=== PATIENT | male | born 1965 | race Hispanic/Latino ===

== ENCOUNTER 2018-05-14 00:01 | Emergency (ER) | payer OTHER ==
[2018-05-14 00:04] VITALS: BP 132/89; PULSE 72; RESP 18; O2SAT 96
--- NOTE | 2018-05-14 00:56 | ED PDOC ---
HPI: Psych/Substance Abuse Time Seen by Provider: 05/14/18 00:16 Chief Complaint (Nursing): Alcohol Ingestion Chief Complaint (Provider): Alcohol Ingestion History Per: Patient, EMS History/Exam Limitations: no limitations Onset/Duration Of Symptoms: Other (prior to arrival) Current Symptoms Are (Timing): Still Present Additional Complaint(s): 52 y/o male with a PMHx of alcohol abuse brought to ER by EMS due to alcohol intoxication. Patient states he hold had a few beers. He denies any drugs, injuries, or medical complaints at this time. PCP: [facility] Provider Past Medical History Reviewed: Historical Data, Nursing Documentation, Vital Signs Vital Signs: Last Vital Signs Temp Pulse 72 05/14/18 00:03 Resp 18 05/14/18 00:03 BP 132/89 05/14/18 00:03 Pulse Ox 96 05/14/18 00:03 - Medical History PMH: No Chronic Diseases - Surgical History Surgical History: No Surg Hx - Family History Family History: States: Unknown Family Hx - Allergies Allergies/Adverse Reactions: Allergies Allergy/AdvReac Type Severity Reaction Status Date / Time No Known Allergies Allergy Verified 05/14/18 00:02 Review of Systems ROS Statement: Except As Marked, All Systems Reviewed And Found Negative Physical Exam - Reviewed Nursing Documentation Reviewed: Yes Vital Signs Reviewed: Yes - Physical Exam Appears: Positive for: Non-toxic, No Acute Distress Head Exam: Positive for: ATRAUMATIC, NORMAL INSPECTION, NORMOCEPHALIC Skin: Positive for: Normal Color, Warm, Dry. Negative for: Rash Eye Exam: Positive for: EOMI, Normal appearance, PERRL Neck: Positive for: Normal, Painless ROM, Supple Cardiovascular/Chest: Positive for: Regular Rate, Rhythm. Negative for: Murmur Respiratory: Positive for: Normal Breath Sounds. Negative for: Respiratory Distress Gastrointestinal/Abdominal: Positive for: Normal Exam, Soft. Negative for: Tenderness Back: Positive for: Normal Inspection. Negative for: L CVA Tenderness, R CVA Tenderness, Vertebral Tenderness Extremity: Positive for: Normal ROM. Negative for: Pedal Edema, Deformity Neurologic/Psych: Positive for: Alert, Oriented (x3), Gait (steady). Negative for: Motor/Sensory Deficits - ECG O2 Sat by Pulse Oximetry: 96 (RA) Pulse Ox Interpretation: Normal Medical Decision Making Medical Decision Makin52 y/o male with a history of alcoholism presenting with alcohol abuse -Patient is awake, alert, and oriented in ER -Patient does not need acute ER intervention at this time, safe for discharge home ----- Scribe Attestation: Documented by Keegan Bryan, acting as a scribe for Harsha Pereira MD. Provider Scribe Attestation: All medical record entries made by the Scribe were at my direction and personally dictated by me. I have reviewed the chart and agree that the record accurately reflects my personal performance of the history, physical exam, medical decision making, and the department course for this patient. I have also personally directed, reviewed, and agree with the discharge instructions and disposition. Disposition - Clinical Impression Clinical Impression: Alcohol abuse - Patient ED Disposition Is Patient to be Admitted: No Counseled Patient/Family Regarding: Diagnosis - Disposition Referrals: Alcoholics Anonymous [Outside] Disposition: Routine/Home Disposition Time: 00:43 Condition: STABLE Instructions: Alcohol Abuse and Alcoholism (DC) Forms: [employer] ([place])
[2018-05-14 01:04] VITALS: TEMP 97
== END 2018-05-14 00:55 | disposition home or self-care (01) ==
LOC: H.ER 00:01
DX: F10.10 Alcohol abuse, uncomplicated (principal)

== ENCOUNTER 2019-03-04 23:35 | Emergency (ER) | payer OTHER ==
[2019-03-04 23:35] VITALS: BMI 21.9
--- NOTE | 2019-03-05 00:32 | ED PDOC ---
HPI: Psych/Substance Abuse Time Seen by Provider: 03/04/19 23:46 Chief Complaint (Nursing): Alcohol Ingestion Chief Complaint (Provider): Alcohol Ingestion History Per: Patient, EMS History/Exam Limitations: no limitations Associated Symptoms: Agitation Additional Complaint(s): 53 years old male, well known to provider for multiple visits to ER, brought in by EMS for public intoxication. Patient is very agitated and aggressive. Unable to obtain history from patient dues to intoxication. PMD: None provided Past Medical History Reviewed: Historical Data, Nursing Documentation, Vital Signs Vital Signs: Last Vital Signs Temp 97.7 F 03/04/19 23:44 Pulse 79 03/04/19 23:44 Resp 20 03/04/19 23:44 BP 163/99 H 03/04/19 23:44 Pulse Ox 97 03/04/19 23:44 Primary Care Provider: FAMILY PROVIDER,NO - Medical History Other PMH: Unknown - Family History Family History: States: Unknown Family Hx - Social History Alcohol: Social - Home Medications Home Medications: Ambulatory Orders Medication Instructions Recorded Cephalexin [cephalexin] 500 mg PO QID #40 cap 01/01/19 - Allergies Allergies/Adverse Reactions: Allergies Allergy/AdvReac Type Severity Reaction Status Date / Time No Known Allergies Allergy Verified 03/04/19 23:46 Review of Systems Review Of Systems: ROS cannot be obtained secondary to pt's inabilty to answer questions. Physical Exam - Reviewed Nursing Documentation Reviewed: Yes Vital Signs Reviewed: Yes - Physical Exam Appears: Positive for: No Acute Distress (Agitated and aggressive) Head Exam: Positive for: ATRAUMATIC Skin: Positive for: Normal Color, Warm, Dry Eye Exam: Positive for: Normal appearance, EOMI, PERRL ENT: Positive for: Normal ENT Inspection Neck: Positive for: Normal, Painless ROM, Supple Cardiovascular/Chest: Positive for: Regular Rate, Rhythm. Negative for: Murmur Respiratory: Positive for: Normal Breath Sounds. Negative for: Respiratory Distress Gastrointestinal/Abdominal: Positive for: Normal Exam, Soft. Negative for: Tenderness Back: Positive for: Normal Inspection. Negative for: L CVA Tenderness, R CVA Tenderness Extremity: Positive for: Normal ROM. Negative for: Pedal Edema, Deformity Neurological/Psych: Positive for: Other (Slurred speech) - ECG O2 Sat by Pulse Oximetry: 97 (RA) Pulse Ox Interpretation: Normal Medical Decision Making Medical Decision Making: Time: 2356 Initial impression: 53 years old intoxicated male Initial Plan: --Alcohol Serum --Ativan --Haldol --1:1 Observation Time: 534 --CT Head W/O Contrast 603 CT Head W/O Contrast Findings Normal size of the ventricles and extra-axial spaces for the patient's age. Normal white matter tracts of the supratentorial brain. Normal basal ganglia a nd thalami. Normal brainstem. Normal cerebellum. There is no demonstrated extra-axial, intraparenchymal, or intraventricular hemorrhage. There are no findings of an acute ischemic infarction. Normal calvarium. There is no demonstrated fracture. Normal soft tissue structures. Normal visualized paranasal sinuses. IMPRESSION: Normal unenhanced CT scan of the brain. [address] Patient signed out to Dr. Champion, pending sobriety. Scribe Attestation: Documented by Delia Oh, acting as a scribe for Sathya Myers MD. Provider Scribe Attestation: All medical record entries made by the Scribe were at my direction and personally dictated by me. I have reviewed the chart and agree that the record accurately reflects my personal performance of the history, physical exam, medical decision making, and the department course for this patient. I have also personally directed, reviewed, and agree with the discharge instructions and disposition. Disposition - Clinical Impression Clinical Impression: Alcohol abuse with intoxication - Patient ED Disposition Is Patient to be Admitted: Transfer of Care - Disposition Disposition: Transfer of Care Disposition Time: 07:00 Condition: STABLE Instructions: Alcohol Use - When Is Drinking a Problem? Forms: Head Held High ([place]ian) Patient Signed Over To: Óscar Champion (Pending sobriety)
[2019-03-05 01:11] VITALS: TEMP 98.5
[2019-03-05 04:16] VITALS: BP 131/68
[2019-03-05] MEDS ORDERED: Tdap Vaccine 0.5 ml Vial (10-64 yrs) IM ONE ×2 (05:36→06:59)
--- NOTE | 2019-03-05 07:04 | ED PDOC ---
- ECG O2 Sat by Pulse Oximetry: 97 (RA) Pulse Ox Interpretation: Normal - Progress Re-evaluation Time: 14:01 Condition: Re-examined, Improved Medical Decision Making Medical Decision Making: Time: 0700 -- Patient endorsed to me by Dr. Myers, pending sobriety and CT head. CT SCAN OF THE BRAIN WITHOUT IV CONTRAST CLINICAL INDICATION: Head injury. TECHNIQUE: Axial and reformatted sagittal and coronal images of the brain obtained without IV contrast administration. Normal size of the ventricles and extra-axial spaces for the patient's age. Normal white matter tracts of the supratentorial brain. Normal basal ganglia and thalami. Normal brainstem. Normal cerebellum. There is no demonstrated extra-axial, intraparenchymal, or intraventricular hemorrhage. There are no findings of an acute ischemic infarction. Normal calvarium. There is no demonstrated fracture. Normal soft tissue structures. Normal visualized paranasal sinuses. IMPRESSION: Normal unenhanced CT scan of the brain. Electronically signed on March 05, 2019 6:04:24 AM EDT by: Leti Yepez M.D., Certified by [facility], MS[facility], Neuroradiology 1400 Patient is alert and awake. Ambulatory with steady gait. Scribe Attestation: Documented by Sofiya Guerra, acting as a scribe Maria Eugenia Champion MD. Provider Scribe Attestation: All medical record entries made by the Scribe were at my direction and personally dictated by me. I have reviewed the chart and agree that the record accurately reflects my personal performance of the history, physical exam, medical decision making, and the department course for this patient. I have also personally directed, reviewed, and agree with the discharge instructions and disposition. Disposition Doctor Will See Patient In The: Office Counseled Patient/Family Regarding: Studies Performed, Diagnosis, Need For Followup - Clinical Impression Clinical Impression: Alcohol abuse with intoxication, Head injury - POA Present On Arrival: None - Disposition Referrals: [facility] [Outside] Disposition: Routine/Home Disposition Time: 14:03 Condition: IMPROVED Instructions: Alcohol Use - When Is Drinking a Problem?, Minor Head Injury (DC)
--- NOTE | 2019-03-05 09:51 | CT ---
Date of service: 03/05/2019 PROCEDURE: CT HEAD WITHOUT CONTRAST. HISTORY: Head injury COMPARISON: None available. TECHNIQUE: Axial computed tomography images were obtained through the head/brain without intravenous contrast. Radiation dose: Total exam DLP = 2035.06 mGy-cm. This CT exam was performed using one or more of the following dose reduction techniques: Automated exposure control, adjustment of the mA and/or kV according to patient size, and/or use of iterative reconstruction technique. FINDINGS: HEMORRHAGE: No acute parenchymal, subarachnoid nor extra-axial hemorrhage. BRAIN: Minor chronic periventricular white matter ischemic changes are felt to be present. Mild generalized volume loss. VENTRICLES: No obstructive hydrocephalus. CALVARIUM: No acute calvarial fractures PARANASAL SINUSES: Unremarkable as visualized. No significant inflammatory changes. MASTOID AIR CELLS: Unremarkable as visualized. No inflammatory changes. OTHER FINDINGS: None. IMPRESSION: Study is slightly limited by motion artifact. Minor chronic white matter ischemic changes. Mild generalized volume loss.
[2019-03-05 14:34] VITALS: PULSE 88; RESP 16; O2SAT 99
== END 2019-03-05 14:25 | disposition home or self-care (01) ==
LOC: H.ER 23:35
DX: F10.129 Alcohol abuse with intoxication, unspecified (principal); S09.90XA Unspecified injury of head, initial encounter; Y90.8 Blood alcohol level of 240 mg/100 ml or more; Z23 Encounter for immunization
CPT/HCPCS: 70450; 80320; 82948; 90471; 90715; 96372; 99284; J1630; J2060